=== PATIENT | male | born 1990 | race African-American/Black ===

== ENCOUNTER 2016-04-28 18:07 | Emergency (ER) | payer SELFPAY ==
[2016-04-28] MEDS ORDERED: Ibuprofen 800 MG TAB ONE (18:22)
[2016-04-28] MEDS ORDERED: Amoxicillin/Potassium Clav 875 MG TAB ONE (18:22)
--- NOTE | 2016-04-28 18:36 | ERRECORD ---
[facility] EMERGENCY RECORD HPI TOOTHACHE (18:24 JLOY) CHIEF COMPLAINT: Patient presents for evaluation of toothache, Patient presents for evaluation of Pt with right upper tooth pain with drainage from gum x >1 month. Increased pain today. Pain radiating to face. No other symptoms. HISTORIAN: History provided by patient. LOCATION: Symptoms are localized. TEETH: upper right canine (cuspid) (#6),. QUALITY: Pain is dull in nature. TIME COURSE: There has been no change in the patient's symptoms over time, are constant. ASSOCIATED WITH: No associated chills, No associated fever, No associated vomiting. EXACERBATED BY: Patient's condition exacerbated by chewing. RELIEVED BY: Patient's condition relieved by nothing. ROS (18:25 JLOY) CONSTITUTIONAL: Historian denies chills, denies fever. ENT: Historian denies rhinorrhea, denies sore throat. GI: Historian denies nausea, denies vomiting. NEUROLOGIC: Historian denies dizziness, denies headache. PAST MEDICAL HISTORY MEDICAL HISTORY: No past medical history, Flu vaccine not up to date, Tetanus not up to date. (18:14 BDON) MALE SURGICAL HISTORY: Patient has no surgical history. (18:14 BDON) PSYCHIATRIC HISTORY: No previous psychiatric history. (18:14 BDON) SOCIAL HISTORY: Patient drinks socially, twice a month, Patient denies drug use, Patient has no smoking history. . (18:14 BDON) NOTES: Nursing records reviewed, Agree with nursing records. (18:27 JLOY) KNOWN ALLERGIES No Known Drug Allergies CURRENT MEDICATIONS (18:12 BDON) None VITAL SIGNS VITAL SIGNS: Pulse: 67, Resp: 18, Temp: 100.1 (Oral), Pain: 9, O2 sat: 99, Time: 04/28/2016 18:09. (18:09 BDON) BP: 185/85, Time: 04/28/2016 18:12. (18:12 BDON) PHYSICAL EXAM (18:26 JLOY) CONSTITUTIONAL: Vital signs reviewed, Patient appears non toxic, Patient alert and oriented to person, place and time. EYES: Eye exam included findings of eyelids normal to inspection, &a-1R&a+25V*p+0X*k5003B*c202B*c15G*c2P*p-0X&a-25V&a+1R Name: Maximo Velasquez : 1990 M26 MedRec: [id number] AcctNum: [id number] Prepared: Jani Apr 28, 2016 18:37 by Interface Page 1 of 3 pMD [facility] EMERGENCY RECORD Pupils equally round and reactive to light, Conjunctiva normal. ENT: Pharynx exam normal, Uvula exam normal, Tonsil exam normal, Mouth exam normal, mucous membranes moist, Teeth with, Indicated tooth with deep cavitary lesion. Above tooth with open abscess draining small purulence. No surrounding edema. No facial edema. NECK: Neck exam included findings of normal range of motion, Trachea midline, no cervical adenopathy. RESPIRATORY CHEST: Respiratory exam included findings of no respiratory distress, Breath sounds clear, No wheezing, No rales, No rhonchi, Chest exam included findings of chest movement symmetrical. CARDIOVASCULAR: Cardiovascular exam included findings of heart rate regular rate and rhythm, Heart sounds normal. NEURO: [place] coma scale 15, Neuro exam findings include patient oriented to person, place and time, Speech normal. SKIN: Skin exam included findings of skin warm, dry, and normal in color, no rash. PSYCHIATRIC: Normal affect. MEDICATION ADMINISTRATION SUMMARY Drug Name: Augmentin, Dose Ordered: 1 tab(s), Route: Oral, Status: Given, Time: 18:26 04/28/2016, Drug Name: ibuprofen, Dose Ordered: 800 mg, Route: Oral, Status: Given, Time: 18:26 04/28/2016, Detailed record available in Medication Service section. PROBLEM LIST No recorded problems DIAGNOSIS (18:22 [facility]) FINAL: PRIMARY: Toothache. PRESCRIPTION (18:21 [facility]) Augmentin: TABLET : 875 mg-125 mg : ORAL : Quantity: 1 Unit: tab(s) Route: ORAL Schedule: 2 times a day Dispense: 10 DAYS May substitute. Refills: No Refills . NOTES: No Refills. ibuprofen: TABLET : 800 mg : ORAL : Quantity: 1 Unit: tab(s) Route: ORAL Schedule: every 8 hours PRN Dispense: 30 May substitute. Refills: No Refills . NOTES: ^s=No Refills No Refills. DISPOSITION PATIENT: Disposition Type: Discharge, Disposition: *Discharge Home. (18:22 TRISTAN) Patient left the department. (18:33 BRENT) Ugalde: &a-1R&a+25V*p+0X*v4478J*c202B*c15G*c2P*p-0X&a-25V&a+1R Name: Maximo Velasquez : 1990 6 MedRec: [id number] AcctNum: [id number] Prepared: Jani Apr 28, 2016 18:37 by Interface Page 2 of 3 pMD [facility] EMERGENCY RECORD BDMARIA C=PENG Oliver, Bibiana KENNEDY=PENG Méndez, Tayler HUDSON=MD Pablito, Patrick &a-1R&a+25V*p+0X*[id number]*c202B*c15G*c2P*p-0X&a-25V&a+1R Name: Chucky Velasquezest : 1990 [facility] [place] MedRec: [id number] AcctNum: [id number] Prepared: Jani Apr 28, 2016 18:37 by Interface Page 3 of 3 pMD MTDD
--- NOTE | 2016-04-28 18:39 | PICIS ---
[facility] EMERGENCY RECORD TRIAGE ([facility] Apr 28, 2016 18:11 BDON) TRIAGE NOTES: Right top side toothace, feels pressure in nose, ears and head. ([facility] Apr 28, 2016 18:11 BDON) PATIENT: NAME: Maximo Velasquez, AGE: 26, GENDER: male, : Sun 1990, TIME OF GREET: Sat Apr 28, 2016 18:08, PREFERRED LANGUAGE: Sinhala, ETHNICITY: Not or , ECODE BILLING MAP: [facility], SSN: [id number], Zip Code: [address], KG WEIGHT: 72.57, PHONE: , , , PERSON ID: [id number], PCP: john. ([facility] Apr 28, 2016 18:11 BDON) COMPLAINT: DENTAL PAIN. ([facility] Apr 28, 2016 18:11 BDON) ADMISSION: URGENCY: 4 Non Urgent, ADMISSION SOURCE: Alf/Care Home, TRANSPORT: Walk-in, BED: TRIAGE. ([facility] Apr 28, 2016 18:11 BDON) ASSESSMENT: Assessment: Right upper middle toothache, ear and nose hurts, Symptoms began yesterday. (18:14 BDON) TREATMENTS IN PROGRESS: Treatments given Prehospital: tylenol 0830, oral gell and mouthwash. (18:14 BDON) PROVIDERS: TRIAGE NURSE: Bibiana Oliver RN. ([facility] Apr 28, 2016 18:11 BDON) VITAL SIGNS: Pulse 67, Resp 18, Temp 100.1, (Oral), Pain 9, O2 Sat 99, Time 04/28/2016 18:09. (18:09 BDON) BP 185/85, Time 04/28/2016 18:12. (18:12 BDON) PREVIOUS VISIT ALLERGIES: No Known Drug Allergies. ([facility] Apr 28, 2016 18:11 BDON) No Known Drug Allergies. (18:14 BDON) KNOWN ALLERGIES No Known Drug Allergies CURRENT MEDICATIONS (18:12 BDON) None VITAL SIGNS VITAL SIGNS: Pulse: 67, Resp: 18, Temp: 100.1 (Oral), Pain: 9, O2 sat: 99, Time: 04/28/2016 18:09. (18:09 BDON) BP: 185/85, Time: 04/28/2016 18:12. (18:12 BDON) NURSING ASSESSMENT: DENTAL (18:14 EPIE) CONSTITUTIONAL: Patient arrives, Pt ambulatory in cuffs from [facility], Gait steady, History obtained from patient, Patient appears comfortable, Patient cooperative, Patient alert, Oriented to person, place and time, Skin warm, Skin dry, Skin normal in color, Mucous membranes pink, Mucous membranes moist, Patient is well-groomed, Right top side toothace, feels pressure in nose, ears and head. PAIN: aching pain, throbbing pain, Right upper lateral to K9, on a scale 0-10 patient rates pain as 9. DENTAL: Teeth abnormal:, broken secondary tooth (teeth), signs of infection to secondary tooth &a-1R&a+25V*p+0X*q3775D*c202B*c15G*c2P*p-0X&a-25V&a+1R Name: Maximo Velasquez : 1990 M26 MedRec: [id number] AcctNum: [id number] Prepared: Sat Apr 28, 2016 18:43 by Interface Page 1 of 4 pMD [facility] EMERGENCY RECORD (teeth). NURSING PROCEDURE: DISCHARGE NOTE (18:28 EPIE) DISCHARGE: Patient discharged to, Alf, ambulating without assistance, Other, mode of transportation: SO, accompanied by law enforcement, Summary of Care printed/ provided, Discharge instructions given to patient, Simple or moderate discharge teaching performed, Prescriptions given and instructions on side effects given, Name of prescription(s) given: augmentin, ibuprofen, Above person(s) verbalized understanding of discharge instructions and follow-up care. BELONGINGS: Belongings and valuables with patient upon arrival to the Emergency Department include:, Belongings and valuables with patient at time of discharge include:, Belongings remain with patient, Valuables remain with patient. MEDICATION ADMINISTRATION SUMMARY Drug Name: Augmentin, Dose Ordered: 1 tab(s), Route: Oral, Status: Given, Time: 18:26 04/28/2016, Drug Name: ibuprofen, Dose Ordered: 800 mg, Route: Oral, Status: Given, Time: 18:26 04/28/2016, Detailed record available in Medication Service section. MEDICATION SERVICE (18:[facility]) Augmentin: Order: Augmentin (amoxicillin trihydrate/potassium clavulanate) - Dose: 1 tab(s) : Oral Ordered by: Patrick Kenney MD Entered by: Patrick Kenney MD Sat Apr 28, 2016 18:19 , Acknowledged by: Tayler Méndez RN Sat Apr 28, 2016 18:21 Documented as given by: Tayler Méndez RN Sat Apr 28, 2016 18:26 Patient, Medication, Dose, Route and Time verified prior to administration. Amount given: 1tab, Site: Medication administered P.O., Correct patient, time, route, dose and medication confirmed prior to administration, Patient advised of actions and side-effects prior to administration, Allergies confirmed and medications reviewed prior to administration. ibuprofen: Order: ibuprofen - Dose: 800 mg : Oral Ordered by: Patrick Kenney MD Entered by: Patrick Kenney MD Sat Apr 28, 2016 18:20 , Acknowledged by: Tayler Méndez RN Sat Apr 28, 2016 18:21 Documented as given by: Tayler Méndez RN Sat Apr 28, 2016 18:26 Patient, Medication, Dose, Route and Time verified prior to administration. Amount given: 800mg, Site: Medication administered P.O., Correct patient, time, route, dose and medication confirmed prior to administration, Patient advised of actions and side-effects prior to administration, Allergies confirmed and medications reviewed prior to administration. &a-1R&a+25V*p+0X*d6943X*c202B*c15G*c2P*p-0X&a-25V&a+1R Name: Maximo Velasquez : 1990 M26 MedRec: [id number] AcctNum: [id number] Prepared: Sat Apr 28, 2016 18:43 by Interface Page 2 of 4 pMD [facility] EMERGENCY RECORD HPI TOOTHACHE (18:24 [facility]) CHIEF COMPLAINT: Patient presents for evaluation of toothache, Patient presents for evaluation of Pt with right upper tooth pain with drainage from gum x >1 month. Increased pain today. Pain radiating to face. No other symptoms. HISTORIAN: History provided by patient. LOCATION: Symptoms are localized. TEETH: upper right canine (cuspid) (#6),. QUALITY: Pain is dull in nature. TIME COURSE: There has been no change in the patient's symptoms over time, are constant. ASSOCIATED WITH: No associated chills, No associated fever, No associated vomiting. EXACERBATED BY: Patient's condition exacerbated by chewing. RELIEVED BY: Patient's condition relieved by nothing. ROS (18:25 JLOY) CONSTITUTIONAL: Historian denies chills, denies fever. ENT: Historian denies rhinorrhea, denies sore throat. GI: Historian denies nausea, denies vomiting. NEUROLOGIC: Historian denies dizziness, denies headache. PAST MEDICAL HISTORY MEDICAL HISTORY: No past medical history, Flu vaccine not up to date, Tetanus not up to date. (18:14 BDON) MALE SURGICAL HISTORY: Patient has no surgical history. (18:14 BDON) PSYCHIATRIC HISTORY: No previous psychiatric history. (18:14 BDON) SOCIAL HISTORY: Patient drinks socially, twice a month, Patient denies drug use, Patient has no smoking history. . (18:14 BDON) NOTES: Nursing records reviewed, Agree with nursing records. (18:27 JLOY) PHYSICAL EXAM (18:26 JLOY) CONSTITUTIONAL: Vital signs reviewed, Patient appears non toxic, Patient alert and oriented to person, place and time. EYES: Eye exam included findings of eyelids normal to inspection, Pupils equally round and reactive to light, Conjunctiva normal. ENT: Pharynx exam normal, Uvula exam normal, Tonsil exam normal, Mouth exam normal, mucous membranes moist, Teeth with, Indicated tooth with deep cavitary lesion. Above tooth with open abscess draining small purulence. No surrounding edema. No facial edema. NECK: Neck exam included findings of normal range of motion, Trachea midline, no cervical adenopathy. RESPIRATORY CHEST: Respiratory exam included findings of no respiratory distress, Breath sounds clear, No wheezing, No rales, No &a-1R&a+25V*p+0X*w7075L*c202B*c15G*c2P*p-0X&a-25V&a+1R Name: Maximo Velasquez : 1990 M26 MedRec: [id number] AcctNum: [id number] Prepared: Jani Apr 28, 2016 18:43 by Interface Page 3 of 4 pMD [facility] EMERGENCY RECORD rhonchi, Chest exam included findings of chest movement symmetrical. CARDIOVASCULAR: Cardiovascular exam included findings of heart rate regular rate and rhythm, Heart sounds normal. NEURO: [place] coma scale 15, Neuro exam findings include patient oriented to person, place and time, Speech normal. SKIN: Skin exam included findings of skin warm, dry, and normal in color, no rash. PSYCHIATRIC: Normal affect. EVENTS TRANSFER: Triage to Emergency Triage. (18:11 BDON) Emergency Triage to Emergency Room -03. (18:12 BDON) Removed from Emergency Emergency Room -03. (18:33 EPIE) PROBLEM LIST No recorded problems DIAGNOSIS (18:22 JLOY) FINAL: PRIMARY: Toothache. DISPOSITION PATIENT: Disposition Type: Discharge, Disposition: *Discharge Home. (18:22 JLOY) Patient left the department. (18:33 EPIE) INSTRUCTION (18:23 JLOY) DISCHARGE: TOOTH ABSCESS. FOLLOWUP: Follow up with Primary Care Physician in 7-10 days. PRESCRIPTION (18:21 JLOY) Augmentin: TABLET : 875 mg-125 mg : ORAL : Quantity: 1 Unit: tab(s) Route: ORAL Schedule: 2 times a day Dispense: 10 DAYS May substitute. Refills: No Refills . NOTES: No Refills. ibuprofen: TABLET : 800 mg : ORAL : Quantity: 1 Unit: tab(s) Route: ORAL Schedule: every 8 hours PRN Dispense: 30 May substitute. Refills: No Refills . NOTES: ^s=No Refills No Refills. IMAGING *DISCHARGE INSTRUCTIONS RECEIPT: Image captured from scanner. (18:32 EPIE) *SUPPLY CHARGE SHEET: Image captured from scanner. (18:33 EPIE) ADMIN (18:27 JL) DIGITAL SIGNATURE: MD Pablito, Patrick. Ugalde: BDON=PENG Oliver, Bibiana EPIE=PENG Méndez, Tayler [facility]=MD Kenney Joshua &a-1R&a+25V*p+0X*p5147E*c202B*c15G*c2P*p-0X&a-25V&a+1R Name: Maximo Velasquez : 1990 M26 MedRec: [id number] AcctNum: [id number] Prepared: Jani Apr 28, 2016 18:43 by Interface Page 4 of 4 pMD MTDD
== END 2016-04-28 18:28 ==
LOC: NAV ERS 18:07
DX: K08.89 Other specified disorders of teeth and supporting structures (principal)